=== PATIENT | female | born 1990 | race Caucasian/White ===

== ENCOUNTER 2024-01-02 08:31 | Outpatient (CLI) | payer OTHER | END 2024-01-02 23:59 | disposition home or self-care (01) | LOC: MRI 08:31 | PROVIDERS: ATTEND Family Medicine | DX: M48.02 Spinal stenosis, cervical region (principal); R53.1 Weakness; R20.2 Paresthesia of skin; M47.812 Spondylosis without myelopathy or radiculopathy, cervical region | CPT/HCPCS: 72141 ==

== ENCOUNTER 2024-02-13 13:09 | Outpatient (CLI) | payer OTHER | END 2024-02-13 23:59 | disposition home or self-care (01) | LOC: RAD 13:09 | PROVIDERS: ATTEND Orthopaedic Surgery | DX: D44.0 Neoplasm of uncertain behavior of thyroid gland (principal) | CPT/HCPCS: 76536 ==